=== PATIENT | male | born 1995 | race Caucasian/White ===

== ENCOUNTER 2019-08-18 16:43 | Emergency (ER) | payer SELFPAY ==
[~2019-08-18] VITALS: Ht 167.6 cm; Wt 77.3 kg
[2019-08-18 20:26] VITALS: BP 122/80
== END 2019-08-18 20:59 | disposition home or self-care (01) ==
LOC: EMS 16:48
DX: R05 Cough (principal); Z03.818 Encounter for observation for suspected exposure to other biological agents ruled out